=== PATIENT | female | born 1955 | race Caucasian/White ===

== ENCOUNTER 2017-11-30 08:19 | Emergency (ER) | payer BC ==
[~2017-11-30] VITALS: Ht 157.5 cm; Wt 60.0 kg
[~2017-11-30 08:19] MED LIST: ADLT ASA LOW81 MG PO; ATENOLOL50 MG PO; AZO-CRANBERY450 MG OR; BRACE XX; BRILINTA90 MG PO; BUSPIRONE10 MG PO; BUSPIRONE15 M1 PO; CELEXA20 MG OR; CEPHALEXIN500 MG PO; CHILD ASA81 MG OR; CIPRO500 MG OR; CRANBERRY1 TA1 PO; CRESTOR5 MG PO; GLUCO/CHOND PO; LEXAPRO20 MG PO; LISINOPRIL2.5 MG PO; LORTAB 10-325 M1 TAB PO; MULTIVIT/MIN PO; RESTORIL15 MG PO; VITAMIN B50 COMPLEX PO
[2017-11-30 09:34] LABS: HEMATOCRIT 49.6 % (37.0-47.0); IMMATURE GRANULOCYTES 0.2 % (0.0-1.0); MEAN CELL VOLUME 95.2 fL CALC (80.0-100.0); MEAN CORPUSCULAR HGB 32.6 pG CALC (26.0-32.0); MEAN CORPUSCULAR HGB CONC 34.3 g/L CALC (32.0-36.0); NEUT# 5.98 thou/uL (2.00-7.15); RED BLOOD COUNT 5.21 mill/uL (4.20-5.60); RED CELL DISTRI WIDTH 13.2 % (11.5-15.5)
[2017-11-30 09:57] LABS: ALBUMIN 5.1 g/dL (3.2-5.0); ALKALINE PHOSPHATASE 70 u/l (38-126); ANION GAP 21 (6-22 (CALC)); BILIRUBIN, TOTAL 0.7 mg/dL (0.0-1.4); BUN 11 mg/dL (8-23); BUN/CREATININE RATIO 16 (12-20 (CALC)); CALCIUM 10.3 mg/dL (8.4-10.2); CARBON DIOXIDE 20 mmol/l (22-30); CHLORIDE 99 mmol/l (95-108); CREATININE 0.7 mg/dL (0.5-1.0); GFR > 60 ML/MIN (>=60 (CALC)); GFR FOR AFR.AMER. > 60 ML/MIN (>=60 (CALC)); GLUCOSE 91 mg/dL (82-115); POTASSIUM 4.8 mmol/l (3.5-5.1); SGOT/AST 62 u/l (9-36); SGPT/ALT 54 u/l (11-66); SODIUM 135 mmol/l (137-146); TOTAL PROTEIN 7.9 g/dL (6.3-8.2)
[2017-11-30 11:15] VITALS: BP 148/92
== END 2017-11-30 11:30 | disposition short-term general hospital (02) | DRG 916 ==
LOC: ED 08:19 → ED-I 09:51 → ED 11:23 → ED-I 11:26 → ED 11:30
PROVIDERS: Emergency Medicine
PROC: 0T9B70Z Drainage of Bladder with Drainage Device, Via Natural or Artificial Opening (ICD-10-PCS; principal; 2017-11-30)
PROC: 0BH17EZ Insertion of Endotracheal Airway into Trachea, Via Natural or Artificial Opening (ICD-10-PCS; 2017-11-30)
DX: T78.3XXA Angioneurotic edema, initial encounter (principal); F10.229 Alcohol dependence with intoxication, unspecified; F17.210 Nicotine dependence, cigarettes, uncomplicated; R22.1 Localized swelling, mass and lump, neck; T50.995A Adverse effect of other drugs, medicaments and biological substances, initial encounter; Y92.009 Unspecified place in unspecified non-institutional (private) residence as the place of occurrence of the external cause; Y90.6 Blood alcohol level of 120-199 mg/100 ml
CPT/HCPCS: J2060

== ENCOUNTER 2018-01-15 11:25 | Emergency (ER) | payer BC ==
[~2018-01-15] VITALS: Ht 157.5 cm; Wt 55.0 kg
[2018-01-15] MEDS ORDERED: AMLODIPINE5 MG PO (12:06)
[2018-01-15 13:11] VITALS: BP 183/98
== END 2018-01-15 13:15 | disposition home or self-care (01) | DRG 305 ==
LOC: ED 11:25
DX: I10 Essential (primary) hypertension (principal); F41.9 Anxiety disorder, unspecified; F17.210 Nicotine dependence, cigarettes, uncomplicated; I25.10 Atherosclerotic heart disease of native coronary artery without angina pectoris; J44.9 Chronic obstructive pulmonary disease, unspecified

== ENCOUNTER 2018-01-21 10:29 | Observation (INO) | payer BC ==
[~2018-01-21] VITALS: Ht 157.5 cm; Wt 55.0 kg
[~2018-01-21 10:29] MED LIST changes: +AMLODIPINE5 MG PO
--- NOTE | 2018-01-21 10:40 | NUR ---
PT SENT BACK TO WAITING ROOM ADVISED OF CRITICAL PT IN ER ROOM
--- NOTE | 2018-01-21 11:42 | NUR ---
PT TO ROOM FOR EXAM
--- NOTE | 2018-01-21 12:50 | NUR ---
PT AT BEDSIDE TO GIVE BREATHING TREATMENT.
[2018-01-21 13:05] LABS: HEMATOCRIT 40.4 % (37.0-47.0); HEMOGLOBIN 13.3 g/dl (12.0-16.0); IMMATURE GRANULOCYTES 0.3 % (0.0-1.0); MEAN CELL VOLUME 99.8 fL CALC (80.0-100.0); MEAN CORPUSCULAR HGB 32.8 pG CALC (26.0-32.0); MEAN CORPUSCULAR HGB CONC 32.9 g/L CALC (32.0-36.0); NEUT# 8.84 thou/uL (2.00-7.15); RED BLOOD COUNT 4.05 mill/uL (4.20-5.60); RED CELL DISTRI WIDTH 14.2 % (11.5-15.5)
[2018-01-21] MEDS ORDERED: TEMAZEPAM15 MG PO (13:10)
--- NOTE | 2018-01-21 13:10 | NUR ---
O2 APPLIED AT 2L VIA NASAL CANNULA.
[2018-01-21 13:14] LABS: URINE BILIRUBIN - DIPSTICK NEGATIVE (NEGATIVE); URINE BLOOD DIPSTICK NEGATIVE (NEGATIVE); URINE COLOR YELLOW; URINE GLUCOSE - DIPSTICK NEGATIVE (NEGATIVE); URINE KETONE TRACE mg/dL (NEGATIVE); URINE LEUK ESTERASE NEGATIVE (Negative); URINE NITRITE - DIPSTICK NEGATIVE (Negative); URINE PH 5.5 (4.5-8.0); URINE PROTEIN - DIPSTICK NEGATIVE (NEG-TRACE)
[2018-01-21 13:21] LABS: BUN 15 mg/dL (8-23); BUN/CREATININE RATIO 22 (12-20 (CALC)); CARBON DIOXIDE 21 mmol/l (22-30); CHLORIDE 108 mmol/l (95-108); CREATININE 0.7 mg/dL (0.5-1.0); GFR > 60 ML/MIN (>=60 (CALC)); GFR FOR AFR.AMER. > 60 ML/MIN (>=60 (CALC)); POTASSIUM 4.5 mmol/l (3.5-5.1)
[2018-01-21 13:25] LABS: INFLUENZA A NONE DETECTED (NONE DETECT); INFLUENZA B NONE DETECTED (NONE DETECT)
[2018-01-21] MEDS ORDERED: PREDNISONE20 MG PO (13:25)
[2018-01-21 13:26] LABS: URINE CLARITY CLEAR
[2018-01-21] MEDS ORDERED: AMLODIPINE BESYL5 MG PO (13:27)
[2018-01-21 13:28] LABS: ANION GAP 18 (6-22 (CALC)); SODIUM 142 mmol/l (137-146)
--- NOTE | 2018-01-21 13:45 | NUR ---
PATIENT RESTING ON STRETCHER ALERT AND ORIENTED X3. CONTINUE TO HAVE PRODUCTIVE COUGH.
--- NOTE | 2018-01-21 15:00 | NUR ---
PATIENT SET UP WITH MEAL TRAY.
--- NOTE | 2018-01-21 15:35 | NUR ---
ATTEMPT MADE TO CALL REPORT SPOKE TO ROSA. SANDOVAL BUSY AT THIS TIME.
--- NOTE | 2018-01-21 15:42 | NUR ---
REPORT GIVEN TO GALI MARTINS.
--- NOTE | 2018-01-21 16:05 | NUR ---
FROM ER VIA WHEELCHAIR ACCOMPANIED BY RITA TALBERT. AMBULATED TO BED WITH STEADY GAIT. EXERTIONAL SHORTNESS OF BREATH NOTED ON O2 VIA NC, C/O CONSTANT COUGH. DENIES PAIN OR DISCOMFORT. ORIENTED TO ROOM AND CALL SYSTEM. SAFETY PRECAUTIONS REINFORCED. BED IN LOWEST POSITION WITH WHEELS LOCKED. CALL LIGHT WITHIN REACH. ENCOURAGED PT TO CALL FOR ANY NEEDS.
--- NOTE | 2018-01-21 16:05 | NUR ---
PATIENT TRANSPORTED TO [facility] VIA WHEELCHAIR. BEDSIDE REPORT GIVEN TO GALI MARTINS. CARE RELINQUISHED.
[2018-01-21 16:39] VITALS: BP 135/80
--- NOTE | 2018-01-21 18:30 | NUR ---
DR DREW IN WITH PT, NEW ORDERS RECEIVED.
[2018-01-21 19:29] VITALS: BP 136/70
--- NOTE | 2018-01-21 19:50 | NUR ---
REPORT RECEIVED FROM DAY NURSE, PT.IS AMBULATING HALLWAY AND NOW BACK TO BED. PT.DENIES ANY NEEDS AT THIS TIME, WILL FOLLOW-UP WITH PM MEDICATIONS AND ASSESS PT.FULLY AT THAT TIME. CALL LIGHT IS W/IN REACH AND PT.HAS BEEN ENCOURAGED TO CALL IF NEEDS ARISE
[2018-01-21 21:57] VITALS: BP 136/70
--- NOTE | 2018-01-21 22:10 | NUR ---
PT.MEDICATED W/PM MEDICATIONS. PT.BECAME VERY UPSET, JUMPING OUT OF BED, GRABBING MED LIST AND STATING, "THIS IS NOT ACCEPTABLE, I CANNOT BELIEVE THEY DIDN'T SCHEDULE MY BUSPIRONE UNTIL MORNING." I COMFORTED PT.TELLING HER THAT I CAN DISCUSS THIS WITH THE DOCTOR AND SEE IF IT CAN BE CHANGED TO TONIGHT. PT.WAS ASSESSED AT THIS TIME, BUT IS STILL EXPRESSING FRUSTRATION OF MEDICATIONS NOT BEING SCHEDULED EXACTLY SHE TAKES HER MEDS AT HOME.
--- NOTE | 2018-01-21 22:48 | NUR ---
UPON ENTERING ROOM PT.APPEARS VERY ANXIOUS. PT.MEDICATED WITH [employer]ORIL AT THIS TIME, BUT STATES THAT SHE NEEDS BUSPIRONE AND IF I DO NOT HAVE THAT SHE WILL LEAVE AMA. I OFFER TO CALL THE TO REQUEST IT BE CHANGED FROM AM TO PM AND SEE IF I CAN GIVE IT, BUT SHE STATED, "I'M NOT WAITING, THEY ARE [employer], THEY THINK THEY ARE AND I WANT THAT FORM TO SIGN OUT." I ASKED HER IF SHE WOULD PLEASE WAIT FOR ME TO CALL THE REGARDING THE MEDICATION SCHEDULE AND SHE STATED, "NO, TOO LATE, HE SHOULD HAVE GIVEN IT TO ME." I LEFT THE ROOM AND NOTIFIED DR. DREW, RECEIVED TRBO BY AND INFORMED PT OF SUCH. UPON REENTERING THE ROOM, PT.WAS DRESSED AND WALKING OUT ROOM DOOR ASKING FOR PAPER. I EXPLAINED THAT I RECEIVED THE MEDICATION ORDER, BUT SHE INSISTED ON AMA FORM AND IV OUT.
--- NOTE | 2018-01-21 23:00 | NUR ---
PT.LEFT AMA/FORM SIGNED AND IV REMOVED.
== END 2018-01-21 22:53 | disposition left against medical advice (07) | DRG 192 ==
LOC: ED 10:29 → ED-I 13:53 → ED 14:28 → MS2 14:29
PROVIDERS: Family Medicine; ADMIT Internal Medicine; ATTEND Internal Medicine
DX: J44.1 Chronic obstructive pulmonary disease with (acute) exacerbation (principal); I10 Essential (primary) hypertension; I25.10 Atherosclerotic heart disease of native coronary artery without angina pectoris; F17.210 Nicotine dependence, cigarettes, uncomplicated; F41.9 Anxiety disorder, unspecified; F32.9 Major depressive disorder, single episode, unspecified; Z95.5 Presence of coronary angioplasty implant and graft
CPT/HCPCS: G0378

== ENCOUNTER 2018-10-01 09:22 | Emergency (ER) | payer BC ==
[~2018-10-01] VITALS: Ht 157.5 cm; Wt 62.3 kg
[~2018-10-01 09:22] MED LIST changes: +AMLODIPINE BESYL5 MG PO; +PREDNISONE20 MG PO; +TEMAZEPAM15 MG PO
[2018-10-01 10:06] LABS: ANION GAP 16 (6-22 (CALC)); BUN 16 mg/dL (8-23); BUN/CREATININE RATIO 20 (12-20 (CALC)); CARBON DIOXIDE 23 mmol/l (22-30); CHLORIDE 105 mmol/l (95-108); CREATININE 0.8 mg/dL (0.5-1.0); GFR > 60 ML/MIN (>=60 (CALC)); GFR FOR AFR.AMER. > 60 ML/MIN (>=60 (CALC)); POTASSIUM 4.3 mmol/l (3.5-5.1); SODIUM 139 mmol/l (137-146)
[2018-10-01] MEDS ORDERED: NITROSTAT0.4 MG SL (10:15)
[2018-10-01] MEDS ORDERED: TRELEGY ELLIPTA1 AER IN (10:16)
[2018-10-01 10:19] LABS: HEMATOCRIT 40.8 % (37.0-47.0); HEMOGLOBIN 13.5 g/dl (12.0-16.0); IMMATURE GRANULOCYTES 0.3 % (0.0-5.0); MEAN CELL VOLUME 97.4 fL CALC (80.0-100.0); MEAN CORPUSCULAR HGB 32.2 pG CALC (26.0-32.0); MEAN CORPUSCULAR HGB CONC 33.1 g/L CALC (32.0-36.0); NEUT# 6.9 thou/uL (2.00-7.15); RED BLOOD COUNT 4.19 mill/uL (4.20-5.60); RED CELL DISTRI WIDTH 13.7 % (11.5-15.5)
[2018-10-01 11:20] VITALS: BP 132/68
== END 2018-10-01 11:20 | disposition left against medical advice (07) | DRG 313 ==
LOC: ED 09:22
PROVIDERS: Family Medicine
DX: R07.9 Chest pain, unspecified (principal); I10 Essential (primary) hypertension; J44.9 Chronic obstructive pulmonary disease, unspecified; F41.9 Anxiety disorder, unspecified; F17.200 Nicotine dependence, unspecified, uncomplicated; Z91.19 Patient's noncompliance with other medical treatment and regimen